=== PATIENT | male | born 1940 | race Caucasian/White ===

== ENCOUNTER → 2020-06-04 | Outpatient (CLI) | payer MEDICARE ==
[~2020-06-04] MED LIST: ACET-1600 PO; CALC-534 PO; CERT400S IM; FEXO180T15 PO; FLUT9.9S NS; GABA300C PO; GUAI600T31 PO; LEFL20TA16 PO; LOPE2CAP PO; MULT-658 PO; ROSU5TAB PO; TIOT18CA INH; symbicort INH
== END | disposition home or self-care (01) ==
LOC: STAR 13:13
PROVIDERS: ATTEND Orthopaedic Surgery
DX: Z01.812 Encounter for preprocedural laboratory examination (principal); Z20.828 Contact with and (suspected) exposure to other viral communicable diseases; M25.561 Pain in right knee; M79.651 Pain in right thigh; R94.31 Abnormal electrocardiogram [ECG] [EKG]
CPT/HCPCS: 36415; 87635; 93005

== ENCOUNTER 2020-06-09 10:24 | Day surgery (SDC) | payer MEDICARE ==
[~2020-06-09] VITALS: Ht 185.4 cm; Wt 97.7 kg
[~2020-06-09 10:24] MED LIST changes: +FENTANYL PF 250 MCG/5ML ONE; +MIDAZOLAM 1 MG/ML, 2ML ONE
[2020-06-09] MEDS ORDERED: CHLORHEXIDINE 15 ML UDC ONE (10:57)
[2020-06-09] MEDS ORDERED: CHLORHEXIDINE 15 ML UDC MM ONE (11:00)
[2020-06-09] MEDS ORDERED: LACTATED RINGERS 1,000 ML IV SCH (12:00)
[2020-06-09] MEDS ORDERED: ROCURONIUM 10 MG/ML,10ML ONE (13:09)
[2020-06-09] MEDS ORDERED: CEFAZOLIN 1,000 MG ONE (13:09)
[2020-06-09] MEDS ORDERED: PROPOFOL 10 MG/ML, 20ML ONE (13:09)
[2020-06-09] MEDS ORDERED: SUCCINYLCHOLINE 20 MG/ML, 10ML ONE (13:09)
[2020-06-09] MEDS ORDERED: DEXAMETHASONE 4 MG/ML, 1ML ONE (13:09)
[2020-06-09] MEDS ORDERED: ONDANSETRON 2MG/ML, 2ML ONE (13:09)
[2020-06-09] MEDS ORDERED: ROPIvacaine/PF 0.5%, 30 ML ONE (13:24)
[2020-06-09] MEDS ORDERED: ALBUTEROL SULFATE 2.5 MG/3 ML NPPB PRN (13:30)
[2020-06-09] MEDS ORDERED: FENTANYL PF 100 MCG/2ML IV PRN (13:30)
[2020-06-09] MEDS ORDERED: METOCLOPRAMIDE 5 MG/ML, 2ML IV PRN (13:30)
[2020-06-09] MEDS ORDERED: PROMETHAZINE 25 MG/ML, 1ML IV PRN (13:30)
[2020-06-09] MEDS ORDERED: DIAZEPAM 5 MG/ML, 2ML IV PRN ×2 (13:30)
[2020-06-09] MEDS ORDERED: OXYcodone 5 MG/5 ML ORAL.SOL UDC PO PRN (13:30)
[2020-06-09] MEDS ORDERED: LABETALOL 5MG/ML, 20ML IV PRN (13:30)
[2020-06-09] MEDS ORDERED: HYDROmorphone 1 MG/ML, 1ML INJ IV PRN (13:30)
[2020-06-09] MEDS ORDERED: MEPERIDINE/PF 25MG/0.5ML IVPush PRN (13:30)
[2020-06-09] MEDS ORDERED: hydrALAzine 20 MG/ML, 1ML IV PRN (13:30)
[2020-06-09] MEDS ORDERED: KETOROLAC 30 MG/1 ML IV PRN (13:30)
[2020-06-09] MEDS ORDERED: ONDANSETRON 2MG/ML, 2ML IVPush PRN (13:30)
== END 2020-06-09 16:45 | disposition home or self-care (01) ==
LOC: OUT 10:24
PROVIDERS: ATTEND Orthopaedic Surgery
DX: M70.41 Prepatellar bursitis, right knee (principal); J44.9 Chronic obstructive pulmonary disease, unspecified; I10 Essential (primary) hypertension; M06.9 Rheumatoid arthritis, unspecified; Z79.899 Other long term (current) drug therapy; Z87.891 Personal history of nicotine dependence; Z90.5 Acquired absence of kidney; Z99.81 Dependence on supplemental oxygen
CPT/HCPCS: 27340; 27632; 88304; J0330; J0690; J1100; J2250; J2405; J2704; J2795; J3010; J7120